=== PATIENT | male | born 1950 | race Caucasian/White ===

== ENCOUNTER → 2024-10-02 09:48 | Outpatient (REF) | payer MEDICARE, SELFPAY | LOC: RAD 09:48 | PROVIDERS: ATTENDING PHYSICIAN Internal Medicine Cardiovascular Disease | DX: I95.1 Orthostatic hypotension (principal); R94.39 Abnormal result of other cardiovascular function study; R00.2 Palpitations; N17.9 Acute kidney failure, unspecified; R55 Syncope and collapse | CPT/HCPCS: 75574; Q9967 ==